=== PATIENT | female | born 2000 | race Caucasian/White ===

== ENCOUNTER 2022-09-16 12:38 | Emergency (ER) | payer OTHER, SELFPAY ==
[2022-09-16 12:44] VITALS: BP 149/86; PULSE 75; RESP 18; TEMP 36.5; O2SAT 100
[2022-09-16 16:02] VITALS: BP 144/76; PULSE 82; RESP 18; O2SAT 100
--- NOTE | 2022-09-16 16:07 | ED.HA ---
HPI - Headache General Chief Complaint: Headache Stated Complaint: possible concussion Time Seen by Provider: 09/16/22 16:07 Source: patient Mode of arrival: ambulatory Limitations: no limitations History of Present Illness HPI Narrative: Patient is a 22-year-old female with no previous medical history presenting to the emergency department for evaluation for intermittent dizziness. Patient states that she slipped on the ice 2 days ago causing her to hit her head at her place of work. Patient is not sure if she lost consciousness. Patient was able to stand, has been able to drive herself, denies any severe headache, significant vision changes, nausea or vomiting. She does report intermittent dizziness since that time. Patient states that she felt well yesterday but then became slightly dizzy at work today. She denies any current dizziness or spinning sensation. She denies focal weakness or numbness. No difficulty with speech. She denies any severe upper or lower back pain but does report mild soreness throughout the muscles of her back. Patient denies any difficulty with ambulation. Patient denies use of any anticoagulation. She denies history of bleeding disorders. States that she has a history of concussion in the past and symptoms do seem similar. Patient is requesting certain paperwork be filled out for her insurance. Related Data Allergies Allergy/AdvReac Type Severity Reaction Status Date / Time lansoprazole [From Prevacid] AdvReac Hives Verified 09/16/22 12:47 Review of Systems Review of Systems: CONSTITUTIONAL: Denies fever, chills, or sweats. EYES: Denies visual changes, redness, or discharge. ENT: Denies rhinorrhea, congestion, sore throat, or otalgia. CARDIOVASCULAR: Denies chest pain, palpitations, or edema. RESPIRATORY: Denies cough or dyspnea. GASTROINTESTINAL: Denies abdominal pain, nausea, vomiting, or diarrhea. GENITOURINARY: Denies dysuria or hematuria. SKIN: Denies rash or itching. MUSCULOSKELETAL: Denies back pain, joint pain, or myalgia. NEUROLOGIC: Reports mild headache without focal numbness or weakness, reports intermittent dizziness PMFSH Past Medical History Medical History (Updated 09/16/22 @ 16:13 by Cheryl Singer MD) No pertinent past medical history Surgical History Surgical History (Updated 09/16/22 @ 16:09 by Cheryl Singer MD) No pertinent past surgical history Social History Social History (Updated 09/16/22 @ 16:09 by Cheryl Singer MD) Smoking status: Never smoker Alcohol intake: current Alcohol use details: rare Substance use: never Gender identity (if verbalized by the patient): Female Exam Narrative: GENERAL: Awake, alert, conversant HEAD: Normocephalic, atraumatic. EYES: PERRLA and EOMI. ENT: Nares clear, no rhinorrhea or epistaxis. Mucous membranes moist. NECK: Supple. CHEST: No respiratory distress, breathing even and non labored HEART: Regular rate, sinus rhythm ABDOMEN:Non distended, non tender EXTREMITIES: Normal range of motion. No edema. SKIN: Warm, dry, no rash. NEURO:No focal deficits. Alert and oriented x3. Finger to nose intact bilaterally. EOMs intact without nystagmus. No facial droop/asymmetry noted bilaterally. Grimace intact. Intact sensation in face. Hearing intact bilaterally. Shoulder shrug intact. Strength 5/5 bilateral upper extremities. Strength 5/5 bilateral lower extremities. Reflexes 2+ patellar. Heel to zepeda intact bilaterally. Ambulatory with a narrow base, steady gait, no ataxia. Course Vital Signs Vital signs: Vital Signs Temperature 36.5 C 09/16/22 12:44 Pulse Rate 75 09/16/22 12:44 Respiratory Rate 18 09/16/22 12:44 Blood Pressure 149/86 H 09/16/22 12:44 Pulse Oximetry 100 09/16/22 12:44 Oxygen Delivery Room Air 09/16/22 12:44 Temperature 36.5 C 09/16/22 12:44 Pulse Rate 82 09/16/22 16:02 Respiratory Rate 18 09/16/22 16:02 Blood Pressure 144/76 H 09/16/22 16:02 Pulse Oxim
== END 2022-09-16 16:31 | disposition home or self-care (01) ==
PROVIDERS: Emergency Provider Emergency Medicine; PCP Family Medicine
DX: F07.81 Postconcussional syndrome (principal); R42 Dizziness and giddiness
CPT/HCPCS: 99283